=== PATIENT | female | born 1995 | race Caucasian/White ===

== ENCOUNTER 2017-08-03 10:08 | Emergency (ER) | payer BC, MEDICAID ==
[2017-08-03] MEDS ORDERED: LORazepam 2 MG/ML VIAL IVP ONE (10:30)
--- NOTE | 2017-08-03 10:31 | EKG ---
[place] [facility] [place] NAME: LADY YEE : [id number] MR: [id number] V: [id number] EXAM DATE: ORDERING PHYSICIAN: BENEDICT NGO TECHNOLOGIST: KAITLIN Test Reason : Blood Pressure : / mmHG Vent. Rate : 130 BPM Atrial Rate : 130 BPM P-R Int : 140 ms QRS Dur : 084 ms QT Int : 312 ms P-R-T Axes : 068 081 013 degrees QTc Int : 459 ms Sinus tachycardia Possible Left atrial enlargement Borderline ECG No previous ECGs available Confirmed by SCARLETT NÚÑEZ ([id number]) on 08/03/2017 2:14:54 PM Referred By: JENI Confirmed By:SCARLETT NÚÑEZ
--- NOTE | 2017-08-03 10:35 | ER Report ---
History and Physical Time Seen By MD: 10:31 Hx. of Stated Complaint: SEIZURE THAT LASTED APPROX 1 MINUTE. ADMITS TO ETOH USE LAST NIGHT AND FATIGUE. "IT ONLY GETS BAD WHEN I AM TIRED." HPI/ROS CHIEF COMPLAINT: Seizure HISTORY OF PRESENT ILLNESS: Patient is a 22-year-old female who presents to the emergency department by ambulance for evaluation of a tonic-clonic seizure that lasted approximately 1 minute and was followed by a brief postictal period. Patient states that she's had similar episodes in the past but has never had a formal workup. She states that these events seem to occur when she is tired. She does admit to drinking alcohol last night. Seizure occurred at a local restaurant this morning during breakfast and was witnessed by her friend. Her friend describes a period where the patient became unresponsive became stiff and then shook violently for approximately 1 minute and then this resolved. Patient prehospital blood sugar was 99. Patient was awake and alert upon EMS arrival. She has remained alert and oriented in the emergency department. REVIEW OF SYSTEMS: Constitutional: No fever, no chills. Eyes: No discharge. ENT: No sore throat. Cardiovascular: No chest pain, no palpitations. Respiratory: No cough, no shortness of breath. Gastrointestinal: No abdominal pain, no vomiting. Genitourinary: No hematuria. Musculoskeletal: No back pain. Skin: No rashes. Neurological: No headache. Seizures Allergies: Coded Allergies: No Known Drug Allergies (Unverified , 08/03/17) Home Meds No Active Prescriptions or Reported Meds Past Medical/Surgical History No diagnosed medical history although patient may have epilepsy Constitutional Vital Sign - Last 24 Hours 08/03/17 08/03/17 08/03/17 08/03/17 10:08 10:30 10:45 11:00 Temp 98.2 Pulse 141 117 119 110 Resp 18 B/P (MAP) 151/92 159/121 (134) 133/93 (106) Pulse Ox 95 95 96 94 O2 Delivery Room Air 08/03/17 08/03/17 08/03/17 08/03/17 11:15 11:30 11:45 11:48 Pulse 115 114 116 B/P (MAP) 136/87 (103) 144/94 (111) Pulse Ox 95 95 95 Physical Exam General/Constitutional: Patient is awake, alert, nontoxic and in no acute respiratory distress. Anxious appearing and tearful Head: Normocephalic and atraumatic. Eyes: Conjunctival clear, Pupils are equal and reactive to light. Extraocular muscles are intact and symmetrical. Sclera are clear and anicteric. Ears:External canals are clear. Tympanic membranes are clear with normal landmarks and light reflex. Nares: No rhinorrhea or bleeding. Turbinates are pink and moist. Oropharyngeal: Mucous membranes are moist. There is no pharyngeal erythema or exudate. There are no palatal petechiae. Uvula is midline and symmetrical. Neck: Supple, no adenopathy. Cardiovascular: Heart is regular rate and rhythm without audible murmurs, rubs or gallops. Pulmonary: Lungs are clear to auscultation bilaterally. There are no wheezes, rales, or rhonchi. Chest rise is symmetrical Abdomen: Soft, nontender, no guarding or peritoneal signs. Extremities: No gross deformities, No peripheral cyanosis. Able to move all 4 extremities. Neuro: Alert and oriented X3, Cranial nerves 2 thru 12 are intact and symmetrical. Skin: No rashes, skin is warm dry and well perfused. Medical Decision Making Data Points Result Diagram: 08/03/17 1020 08/03/17 1020 Laboratory Hematology Test 08/03/17 10:20 Red Blood Count 4.62 M/uL (4.17-5.56) Mean Corpuscular Volume 92.0 fL (80.0-96.0) Mean Corpuscular Hemoglobin 31.4 pg (26.0-33.0) Mean Corpuscular Hemoglobin Concent 34.1 g/dL (32.0-36.0) Red Cell Distribution Width 12.4 % (11.5-14.5) Mean Platelet Volume 7.4 fL (7.2-11.1) Neutrophils (%) (Auto) 45.9 % (39.4-72.5) Lymphocytes (%) (Auto) 43.6 % (17.6-49.6) Monocytes (%) (Auto) 8.4 % (4.1-12.4) Eosinophils (%) (Auto) 1.5 % (0.4-6.7) Basophils (%) (Auto) 0.6 % (0.3-1.4) Nucleated RBC Relative Count (auto) 0.0 /100WBC Neutrophils # (Auto) 5.5 K/uL (2.0-7.4) Lymphocytes # (Auto) 5.3 K/uL (1.3-3.6) Monocytes # (Auto) 1.0 K/uL (0.3-1.0) Eosinophils # (Auto) 0.2 K/uL (0.0-0.5) Basophils # (Auto) 0.1 K/uL (0.0-0.1) Nucleated RBC Absolute Count (auto) 0.01 K/uL Peripheral Blood Smear No Y/N Sodium Level 142 mmol/L (137-145) Potassium Level 3.5 mmol/L (3.5-5.0) Chloride Level 102 mmol/L (98-107) Carbon Dioxide Level 12 mmol/L (22-31) Blood Urea Nitrogen 9 mg/dl (7-18) Creatinine 0.90 mg/dl (0.52-1.04) Glomerular Filtration Rate Calc > 60.0 Random Glucose 103 mg/dl (75-110) Calcium Level 9.7 mg/dl (8.4-10.2) Magnesium Level 1.9 mg/dl (1.7-2.2) Total Bilirubin 0.8 mg/dl (0.2-1.3) Aspartate Amino Transf (AST/SGOT) 32 U/L (0-35) Alanine Aminotransferase (ALT/SGPT) 23 U/L (0-56) Alkaline Phosphatase 79 U/L (0-126) Total Protein 8.2 gm/dl (6.3-8.2) Albumin 5.0 g/dl (3.5-5.0) Human Chorionic Gonadotropin, Qual Negative (NEGATIVE) Chemistry Test 08/03/17 10:20 White Blood Count 12.1 k/uL (4.5-11.0) Red Blood Count 4.62 M/uL (4.17-5.56) Hemoglobin 14.5 g/dL (12.0-16.0) Hematocrit 42.5 % (34.0-47.0) Mean Corpuscular Volume 92.0 fL (80.0-96.0) Mean Corpuscular Hemoglobin 31.4 pg (26.0-33.0) Mean Corpuscular Hemoglobin Concent 34.1 g/dL (32.0-36.0) Red Cell Distribution Width 12.4 % (11.5-14.5) Platelet Count 336 K/uL (150-450) Mean Platelet Volume 7.4 fL (7.2-11.1) Neutrophils (%) (Auto) 45.9 % (39.4-72.5) Lymphocytes (%) (Auto) 43.6 % (17.6-49.6) Monocytes (%) (Auto) 8.4 % (4.1-12.4) Eosinophils (%) (Auto) 1.5 % (0.4-6.7) Basophils (%) (Auto) 0.6 % (0.3-1.4) Nucleated RBC Relative Count (auto) 0.0 /100WBC Neutrophils # (Auto) 5.5 K/uL (2.0-7.4) Lymphocytes # (Auto) 5.3 K/uL (1.3-3.6) Monocytes # (Auto) 1.0 K/uL (0.3-1.0) Eosinophils # (Auto) 0.2 K/uL (0.0-0.5) Basophils # (Auto) 0.1 K/uL (0.0-0.1) Nucleated RBC Absolute Count (auto) 0.01 K/uL Peripheral Blood Smear No Y/N Glomerular Filtration Rate Calc > 60.0 Calcium Level 9.7 mg/dl (8.4-10.2) Magnesium Level 1.9 mg/dl (1.7-2.2) Total Bilirubin 0.8 mg/dl (0.2-1.3) Aspartate Amino Transf (AST/SGOT) 32 U/L (0-35) Alanine Aminotransferase (ALT/SGPT) 23 U/L (0-56) Alkaline Phosphatase 79 U/L (0-126) Total Protein 8.2 gm/dl (6.3-8.2) Albumin 5.0 g/dl (3.5-5.0) Human Chorionic Gonadotropin, Qual Negative (NEGATIVE) EKG/Imaging EKG Interpretation EKG shows sinus tachycardia with ventricular rate of 130 bpm. Monitor Interpretation: Sinus Tachycardia Imaging FACILITY: [facility] PATIENT NAME: Emily Gore : 1995 MR: [id number] V: [id number] EXAM DATE: ORDERING PHYSICIAN: BENEDICT NGO TECHNOLOGIST: Location: [facility] Patient: Emily Gore DOB: 1995 Visit/Account:[id number] Date of Sevice: 08/03/2017 HEAD W/O CONTRAST History: Seizure TECHNIQUE: Contiguous angled axial images were obtained from the vertex through the base of the skull without intravenous contrast. One of the following dose optimization techniques was utilized in the performance of this exam: Automated exposure control; adjustment of the mA and/or kV according to the patient's size; or use of an iterative reconstruction technique. Specific details can be referenced in the facility's radiology CT exam operational policy. COMPARISON STUDIES: none FINDINGS: Ventricles / sulci / fissures: Negative. Masses / hemorrhage / midline shift: Negative. Intra-axial findings: Normal. Extra-axial fluid collections: Negative. Intracranial vasculature and dural sinuses: Negative. Skull base / calvarium: Negative. Scalp: negative Visualized mastoid air cells / paranasal sinuses: Well aerated. Orbits: Negative IMPRESSION: Normal exam Report Dictated By: Jon Gage MD at 08/03/2017 11:07 AM Report E-Signed By: Jon Gage MD at 08/03/2017 11:10 AM [id number] ED Course/Re-evaluation Clinical Indication for ER IV: IV Access ED Course 08/03/2017 10:34:44 am plan at this time will be to check a CT of the head, CBC , CMP, test, EKG. 08/03/2017 11:54:27 am workup at this time is unremarkable. I did speak with patient and her father with regard to the episode which sounds as if she had a tonic-clonic seizure today. I instructed the patient that she should not drive until evaluated by a neurologist. We will provide contact information for Dr. Gaytan who is the visiting neurologist for this hospital. Patient and father no questions or concerns at time of disposition. Decision to Disposition Date: Aug 03, 2017 Decision to Disposition Time: 11:44 Depart Departure Latest Vital Signs Vital Signs Date Time Temp Pulse Resp B/P (MAP) Pulse Ox O2 Delivery O2 Flow Rate FiO2 08/03/17 11:48 144/94 (111) 08/03/17 11:45 116 95 08/03/17 10:08 98.2 18 Room Air Impression: Primary Impression: Seizure Condition: Improved Disposition: HOME OR SELF-CARE Referrals: RANDOLPH GAYTAN MD Make a follow-up appointment for evaluation of suspected seizures New Scripts No Active Prescriptions or Reported Meds Patient Instructions: New-Onset Seizure in Adults (ED) Additional Instructions: You should not drive or operate heavy machinery until cleared by neurology. You were given the contact number for Dr. Gaytan who is a visiting neurologist here at [facility]. You should schedule a follow-up appointment with her for further evaluation and testing for possible seizure disorder BENEDICT NGO MD Aug 03, 2017 10:35
[2017-08-03 10:39] LABS: PLATELET COUNT, AUTOMATED 336 K/uL (150-450)
--- NOTE | 2017-08-03 11:13 | RADIOLOGY IMAGING REPORT ---
FACILITY: [facility] PATIENT NAME: Emily Gore : 1995 MR: [id number] V: [id number] EXAM DATE: ORDERING PHYSICIAN: BENEDICT NGO TECHNOLOGIST: Location: [facility] - [place], [place] Patient: Emily Gore : 1995 Visit/Account:[id number] Date of Sevice: 08/03/2017 HEAD W/O CONTRAST History: Seizure TECHNIQUE: Contiguous angled axial images were obtained from the vertex through the base of the sku ll without intravenous contrast. One of the following dose optimization techniques was utilized in th e performance of this exam: Automated exposure control; adjustment of the mA and/or kV according to t he patient's size; or use of an iterative reconstruction technique. Specific details can be referen ellen in the facility's radiology CT exam operational policy. COMPARISON STUDIES: none FINDINGS: Ventricles / sulci / fissures: Negative. Masses / hemorrhage / midline shift: Negative. Intra-axial findings: Normal. Extra-axial fluid collections: Negative. Intracranial vasculature and dural sinuses: Negative. Skull base / calvarium: Negative. Scalp: negative Visualized mastoid air cells / paranasal sinuses: Well aerated. Orbits: Negative IMPRESSION: Normal exam Report Dictated By: Jon Gage MD at 08/03/2017 11:07 AM Report E-Signed By: Jon Gage MD at 08/03/2017 11:10 AM [id number]
[2017-08-03 11:48] VITALS: BP 144/94
[2017-08-03] MEDS ORDERED: ONDANSETRON 4 MG ODT TH SL ONE (12:00)
[2017-08-03] MEDS ORDERED: ONDANSETRON 4 MG ODT TABDP SL ONE (12:00)
== END 2017-08-03 11:55 | disposition home or self-care (01) ==
LOC: ER 10:17
DX: R56.9 Unspecified convulsions (principal)
CPT/HCPCS: 70450; 83735; 84703; 85025; 93005; 96374; 99284; J2060; S0119; 82040; 82247; 82310; 82374; 82435; 82565; 82947; 84075; 84132; 84155; 84295; 84450; 84460; 84520